=== PATIENT | female | born 1975 | race Caucasian/White ===

== ENCOUNTER 2019-01-04 21:48 | Inpatient (IN) | payer SELFPAY ==
[~2019-01-04] VITALS: Ht 167.6 cm; Wt 89.0 kg
[2019-01-04 23:56] LABS: BASO % 1 % (0-3); EOS # 0.1 x10^3/uL (0.0-0.7); EOS % 1 % (0-3); HEMOGLOBIN 13.7 g/dL (12.0-15.5); LYMPH # 1.9 x10^3/uL (1.0-4.8); LYMPH % 29 % (24-48); MEAN CORPUSCULAR HEMOGLOBIN 29 pg (25-35); MEAN CORPUSCULAR HGB CONC 34 g/dL (31-37); MEAN CORPUSCULAR VOLUME 86 fL (79-100); MONO # 0.5 x10^3/uL (0.0-1.1); MONO % 7 % (0-9); NEUT % 62 % (31-73); PLATELET COUNT 89 x10^3/uL (140-400); RED BLOOD COUNT 4.78 x10^6/uL (3.50-5.40); RED CELL DISTRIBUTION WIDTH 12.9 % (11.5-14.5); WHITE BLOOD COUNT 6.5 x10^3/uL (4.0-11.0)
[2019-01-04 23:57] LABS: BILIRUBIN,URINE SMALL (NEG); CLARITY,URINE CLOUDY; COLOR,URINE YELLOW; NITRITE,URINE POSITIVE (NEG); PROTEIN,URINE NEGATIVE (NEG-TRACE)
[2019-01-05 00:06] LABS: CALCIUM 9.2 mg/dL (8.5-10.1); CREATININE 0.8 mg/dL (0.6-1.0); GFR 78.3; POTASSIUM 3.2 mmol/L (3.5-5.1)
[2019-01-05 00:13] LABS: ALBUMIN 4.3 g/dL (3.4-5.0); ALBUMIN/GLOBULIN RATIO 1.1 (1.0-1.7); TOTAL BILIRUBIN 1.6 mg/dL (0.2-1.0); TOTAL PROTEIN 8.1 g/dL (6.4-8.2)
[2019-01-05 00:14] LABS: AMORPHOUS SEDIMENT,UR PRESENT /HPF; BACTERIA,URINE MANY /HPF (0-FEW); RBC,URINE RARE /HPF (0-2); SQUAMOUS EPITHELIAL CELL,UR MOD /LPF
[2019-01-05] MEDS ORDERED: ONDANSETRON PF 4 MG/2 ML VIAL. IV ONE (00:15)
[2019-01-05] MEDS ORDERED: IV NORMAL SALINE 1000ML BAG 1,000 ML IV ONE (00:15)
[2019-01-05] MEDS ORDERED: fentaNYL PF VIAL 100 MCG/2 ML VIAL IV ONE (00:15)
--- NOTE | 2019-01-05 02:23 | RAD ---
INDICATION: RUQ PAIN EPIGASTRIC PAIN, ELEVATED LFTS COMPARISON: None. TECHNIQUE: Grayscale and color ultrasound images obtained through the abdomen. FINDINGS: Aorta/IVC: Largely obscured by bowel gas Pancreas: Largely obscured by bowel gas Liver: Echogenic appearance Gallbladder: Distended up to 12 cm. There are some internal echoes. The patient does have some pain in the area. Wall measures up to about 4 mm. Common Bile Duct: Not dilated. Right Kidney: No hydronephrosis. IMPRESSION: 1. Liver is echogenic. Nonspecific but can be seen with fatty infiltration. 2. Dilated gallbladder with some internal echoes which could be from sludge within. There is also some pain to transducer pressure within the region and mild prominence the wall. Would correlate with symptoms to ensure there is not a pathologic cause such as hydrops. Electronically signed by: Johan Aguilar MD (01/05/2019 2:19 AM) [facility]
[2019-01-05] MEDS ORDERED: ONDANSETRON PF 4 MG/2 ML VIAL. IV PRN (03:15)
[2019-01-05] MEDS ORDERED: MORPHINE SULFATE 2 MG/ML VIAL. IV PRN (03:15)
[2019-01-05] MEDS ORDERED: PIP/TAZO PER PHARMACY MC PRN (03:15)
[2019-01-05] MEDS: PIPERACILLIN/TAZOBACTAM 3.375 GM in IV NORMAL SALINE 50ML 50 ML IV SCH ×4 (03:38→23:43)
--- NOTE | 2019-01-05 04:08 | PHYS DOC ---
Past Medical History Past Medical History: No Pertinent History Past Surgical History: No Surgical History Alcohol Use: None Drug Use: None Adult General Chief Complaint Chief Complaint: GI PROBLEM HPI HPI Patient is a 43 yo female who presents with complaint of abdominal pain and nausea that began Friday evening. Patient reports her symptoms have gradually worsened. She reports that although she has felt nauseous she has not vomited. She tried treating her pain with tylenol and last took a dose at 1900 without symptomatic relief. She reports her last bowel movement was Friday morning. She notes she has not passed gas since the bowel movement. She denies pain or burning w/ urination. Patient denies back pain, chest pain, shortness of breath. She reports her only past medical history is "something with her platelets" but is unable to be more specific. She denies drug use, etoh use, or tobacco use. She reports her primary care provider is at [facility]. Review of Systems Review of Systems Constitutional: Denies fever or chills [] Eyes: Denies change in visual acuity, redness, or eye pain [] HENT: Denies nasal congestion or sore throat [] Respiratory: Denies cough or shortness of breath [] Cardiovascular: Denies chest pain. Denies palpitation GI: Admits abdominal pain, Admits nausea. Denies diarrhea. Denies vomiting : Denies dysuria or hematuria [] Neurologic: Denies headache, focal weakness or sensory changes [] All other systems were reviewed and found to be within normal limits, except as documented in this note. Current Medications Current Medications Current Medications Medications (Trade) Dose Ordered Sig/Amaury Start Time Stop Time Status Last Admin Dose Admin Fentanyl Citrate (Fentanyl 2ml Vial) 50 mcg 1X ONCE 01/05/19 00:15 01/05/19 00:16 DC 01/05/19 01:20 50 MCG Morphine Sulfate (Morphine Sulfate) 2 mg PRN Q2HR PRN 01/05/19 03:15 01/06/19 03:14 Ondansetron HCl (Zofran) 4 mg PRN Q8HRS PRN 01/05/19 03:15 01/06/19 03:14 Piperacillin Sod/ Tazobactam Sod (Zosyn Per Pharmacy) 1 each PRN DAILY PRN 01/05/19 03:15 Sodium Chloride 1,000 ml @ 1,000 mls/hr 1X ONCE 01/05/19 00:15 01/05/19 01:14 DC 01/05/19 01:20 1,000 MLS/HR Allergies Allergies Allergies Coded Allergies Type Severity Reaction Last Updated Verified No Known Drug Allergies 01/04/19 No Physical Exam Physical Exam Constitutional: Well developed, well nourished, no acute distress, non-toxic appearance. [] HENT: Normocephalic, atraumatic Cardiovascular:Heart rate regular rhythm, no murmur [] Lungs & Thorax: Bilateral breath sounds clear to auscultation [] Abdomen: Bowel sounds normal, abdomen soft, no lesions, scars, or masses appreciated. Significant RUQ tenderness, noted Neurologic: Alert and oriented X 3, normal motor function, normal sensory function, no focal deficits noted. [] psych; alert and responsive, normal mood. ext: atraumatic no trauma seen no edema skin: no rash, no edema, no erythema. Current Patient Data Vital Signs Vital Signs Date Time Temp Pulse Resp B/P (MAP) Pulse Ox O2 Delivery O2 Flow Rate FiO2 01/05/19 01:20 16 98 Room Air 01/04/19 23:11 97.6 71 156/72 (100) 97.6 Lab Values Laboratory Tests Test 01/04/19 23:10 01/04/19 23:25 01/04/19 23:28 Urine Collection Type Unknown Urine Color Yellow Urine Clarity Cloudy Urine pH 7.0 Urine Specific [place] 1.015 Urine Protein Negative mg/dL (NEG-TRACE) Urine Glucose (UA) Negative mg/dL (NEG) Urine Ketones (Stick) 40 mg/dL (NEG) Urine Blood Negative (NEG) Urine Nitrite Positive (NEG) Urine Bilirubin Small (NEG) Urine Urobilinogen Dipstick 4.0 mg/dL (0.2 mg/dL) Urine Leukocyte Esterase Trace (NEG) Urine RBC Rare /HPF (0-2) Urine WBC 1-4 /HPF (0-4) Urine Squamous Epithelial Cells Mod /LPF Urine Amorphous Sediment Present /HPF Urine Bacteria Many /HPF (0-FEW) Urine Mucus Slight /LPF White Blood Count 6.5 x10^3/uL (4.0-11.0) Red Blood Count 4.78 x10^6/uL (3.50-5.40) Hemoglobin 13.7 g/dL (12.0-15.5) Hematocrit 41.0 % (36.0-47.0) Mean Corpuscular Volume 86 fL (79-100) Mean Corpuscular Hemoglobin 29 pg (25-35) Mean Corpuscular Hemoglobin Concent 34 g/dL (31-37) Red Cell Distribution Width 12.9 % (11.5-14.5) Platelet Count 89 x10^3/uL (140-400) L Neutrophils (%) (Auto) 62 % (31-73) Lymphocytes (%) (Auto) 29 % (24-48) Monocytes (%) (Auto) 7 % (0-9) Eosinophils (%) (Auto) 1 % (0-3) Basophils (%) (Auto) 1 % (0-3) Neutrophils # (Auto) 4.0 x10^3uL (1.8-7.7) Lymphocytes # (Auto) 1.9 x10^3/uL (1.0-4.8) Monocytes # (Auto) 0.5 x10^3/uL (0.0-1.1) Eosinophils # (Auto) 0.1 x10^3/uL (0.0-0.7) Basophils # (Auto) 0.0 x10^3/uL (0.0-0.2) Sodium Level 139 mmol/L (136-145) Potassium Level 3.2 mmol/L (3.5-5.1) L Chloride Level 100 mmol/L (98-107) Carbon Dioxide Level 29 mmol/L (21-32) Anion Gap 10 (6-14) Blood Urea Nitrogen 15 mg/dL (7-20) Creatinine 0.8 mg/dL (0.6-1.0) Estimated GFR (Cockcroft-Gault) 78.3 BUN/Creatinine Ratio 19 (6-20) Glucose Level 110 mg/dL (70-99) H Calcium Level 9.2 mg/dL (8.5-10.1) Total Bilirubin 1.6 mg/dL (0.2-1.0) H Aspartate Amino Transferase (AST) 633 U/L (15-37) H Alanine Aminotransferase (ALT) 589 U/L (14-59) H Alkaline Phosphatase 125 U/L (46-116) H Troponin I Quantitative < 0.017 ng/mL (0.000-0.055) Total Protein 8.1 g/dL (6.4-8.2) Albumin 4.3 g/dL (3.4-5.0) Albumin/Globulin Ratio 1.1 (1.0-1.7) Lipase 317 U/L (73-393) POC Urine HCG, Qualitative Hcg negative (Negative) Laboratory Tests 01/04/19 23:25 Laboratory Tests 01/04/19 23:25 EKG EKG [@0156; HR 60 BPM; Sinus rhythm. Nonspecific T wave flattening in III, V3, No ST elevation or ischemia appreciated. ] Radiology/Procedures Radiology/Procedures [PROCEDURE: ABDOMEN LTD INDICATION: RUQ PAIN EPIGASTRIC PAIN, ELEVATED LFTS COMPARISON: None. TECHNIQUE: Grayscale and color ultrasound images obtained through the abdomen. FINDINGS: Aorta/IVC: Largely obscured by bowel gas Pancreas: Largely obscured by bowel gas Liver: Echogenic appearance Gallbladder: Distended up to 12 cm. There are some internal echoes. The patient does have some pain in the area. Wall measures up to about 4 mm. Common Bile Duct: Not dilated. Right Kidney: No hydronephrosis. IMPRESSION: 1. Liver is echogenic. Nonspecific but can be seen with fatty infiltration. 2. Dilated gallbladder with some internal echoes which could be from sludge within. There is also some pain to transducer pressure within the region and mild prominence the wall. Would correlate with symptoms to ensure there is not a pathologic cause such as hydrops. Electronically signed by: Johan Aguilar MD (01/05/2019 2:19 AM) [facility] ] Course & Med Decision Making Course & Med Decision Making Patient is a 43 yo female who presents with complaint of one day of severe abdominal pain and nausea. Patient reports her last BM was Friday morning and she has not passed stool or gas since. Physical exam remarkable for significant abdominal tenderness and + hand's sign. Labs reveal moderately elevated AST, ALT, and alk phos. Troponin WNL. EKG sinus rhythm w/ HR 60. Abd US reveals echogenic liver w/ dilated gallbladder w/ possible biliary sludge and mild prominence of wall. As patient has pain, elevated LFTs, and dilated gallbladder , patient's symptoms could be d/t cholecystitis and that patient is appropriate for admission. Patient treated with fentanyl, morphine, zofran, fluids, and pip- tazo. Patient to be admitted to [facility] for further evaluation and treatment. Discussed plan with patient who voiced agreement and understanding. consult inpt placed for surgery and gi, unclear of exact etiology at this time as no stones seen per u/s report, likely will need further imaging in house. Dragon Disclaimer Dragon Disclaimer This electronic medical record was generated, in whole or in part, using a voice recognition dictation system. Departure Departure Impression: Primary Impression: Elevated LFTs Disposition: ADMITTED INPATIENT Admitting Physician: Other Condition: STABLE Referrals: NO PCP (PCP) GAURAV KING MD Jan 05, 2019 04:08
[2019-01-05 05:15] VITALS: BP 115/64
[2019-01-05] MEDS: IV NORMAL SALINE 1000ML BAG 1,000 ML IV SCH ×3 (05:37→21:25)
[2019-01-05 07:00] VITALS: BP 121/69
--- NOTE | 2019-01-05 07:34 | EKG ---
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
--- NOTE | 2019-01-05 08:07 | PDOC1 ---
History and Physical Date of Admission Date of Admission DATE: 01/05/19 TIME: 08:06 Identification/Chief Complaint Chief Complaint RUQ pain Source Source: Patient History of Present Illness History of Present Illness 43 yo female, mostly somali-speaking only, with PMHx thrombocytopenia who presents with complaint of abdominal pain and nausea that began 01/03/19 in the evening. Patient reports her symptoms have gradually worsened. She reports that although she has felt nauseous she has not vomited. She tried treating her pain with tylenol with no symptomatic relief. She reports her last bowel movement was yesterday morning. She notes she has not passed gas since the bowel movement. She denies pain or burning w/ urination. Patient denies back pain, chest pain, shortness of breath. Found with large transaminitis, admitted for further care. US RUQ shows GB wall thickening. Pain is located in RUQ, epigastrium and LUQ, worse in RUQ, worse with palpation and food. She notes 2/10 pain right now and is asking for food. She denies drug use, etoh use, or tobacco use Past Medical History Cardiovascular: No pertinent hx Pulmonary: No pertinent hx GI: No pertinent hx Heme/Onc: Other (Thrombocytopenia) Hepatobiliary: No pertinent hx Psych: No pertinent hx Rheumatologic: No pertinent hx Infectious disease: No pertinent hx ENT: No pertinent hx Renal/: No pertinent hx Endocrine: No pertinent hx Dermatology: No pertinent hx Current Medications Current Medications Current Medications Fentanyl Citrate (Fentanyl 2ml Vial) 50 mcg 1X ONCE IV Last administered on at 01:20; Start 01/05/19 at 00:15; Stop 01/05/19 at 00:16; Status DC Sodium Chloride 1,000 ml @ 1,000 mls/hr 1X ONCE IV Last administered on at :20; Start 01/05/19 at 00:15; Stop 01/05/19 at 01:14; Status DC Ondansetron HCl (Zofran) 4 mg 1X ONCE IV Last administered on 01/05/19at :20 ; Start 01/05/19 at 00:15; Stop 01/05/19 at 00:16; Status DC Piperacillin Sod/ Tazobactam Sod (Zosyn Per Pharmacy) 1 each PRN DAILY PRN [facility] SEE COMMENTS; Start 01/05/19 at 03:15 Ondansetron HCl (Zofran) 4 mg PRN Q8HRS PRN IV NAUSEA/VOMITING 1ST CHOICE; Start 01/05/19 at 03:15; Stop 01/06/19 at 03:14 Morphine Sulfate (Morphine Sulfate) 2 mg PRN Q2HR PRN IV SEVERE PAIN; Start at 03:15; Stop 01/06/19 at 03:14 Sodium Chloride 1,000 ml @ 125 mls/hr Q8H IV Last administered on 01/05/19at 05 :37; Start 01/05/19 at 03:30; Stop 01/06/19 at 03:29 Piperacillin Sod/ Tazobactam Sod 3.375 gm/Sodium Chloride 50 ml @ 100 mls/hr Q6HRS IV Last administered on 01/05/19at 03:38; Start 01/05/19 at 04:00 Allergies Allergies: Coded Allergies: No Known Drug Allergies (Unverified , 01/04/19) ROS General: YES: Fatigue, Malaise; No: Chills, Night Sweats, Appetite, Other PSYCHOLOGICAL ROS: No: Anxiety, Behavioral Disorder, Concentration difficultie , Decreased libido, Depression, Disorientation, Hallucinations, Hostility, Irritablity, Memory difficulties, Mood Swings, Obsessive thoughts, Physical abuse, Sexual abuse, Sleep disturbances, Suicidal ideation, Other Eyes: No Blurry vision, No Decreased vision, No Double vision, No Dry eyes, No Excessive tearing, No Eye Pain, No Itchy Eyes, No Loss of vision, No Photophobia , No Scotomata, No Uses contacts, No Uses glasses, No Other HEENT: No: Heacaches, Visual Changes, Hearing change, Nasal congestion, Nasal discharge, Oral lesions, Sinus pain, Sore Throat, Epistaxis, Sneezing, Snoring, Tinnitus, Vertigo, Vocal changes, Other ALLERGY AND IMMUNOLOGY: No: Hives, Insect Bite Sensitivity, Itchy/Watery Eyes, Nasal Congestion, Post Nasal Drip, Seasonal Allergies, Other Hematological and Lymphatic: No: Bleeding Problems, Blood Clots, Blood Transfusions, Brusing, Night Sweats, Pallor, Swollen Lymph Nodes, Other ENDOCRINE: No: Breast Changes, Galactorrhea, Hair Pattern Changes, Hot Flashes , Malaise/lethargy, Mood Swings, Palpitations, Polydipsia/polyuria, Skin Changes , Temperature Intolerance, Unexpected Weight Changes, Other Breast: No New/Changing Breast Lumps, No Nipple changes, No Nipple discharge, No Other Respiratory: No: Cough, Hemoptysis, Orthopnea, Pleuritic Pain, Shortness of breath, SOB with excertion, Sputum Changes, Stridor, Tachypnea, Wheezing, Other Cardiovascular: No Chest Pain, No Palpitations, No Orthopnea, No Paroxysmal Noc. Dyspnea, No Edema, No Lt Headedness, No Other Gastrointestinal: Yes Nausea, Yes Abdominal Pain; No Vomiting, No Diarrhea, No Constipation, No Melena, No Hematochezia, No Other Genitourinary: YES Dysuria; No Frequency, No Incontinence, No Hematuria, No Retention, No Discharge, No Urgency, No Pain, No Flank Pain, No Other, No , No , No , No , No , No , No Musculoskeletal: No Gait Disturbance, No Joint Pain, No Joint Stiffness, No Joint Swelling, No Muscle Pain, No Muscular Weakness, No Pain In:, No Swelling In:, No Other Neurological: No Behavorial Changes, No Bowel/Bladder ControlChng, No Confusion , No Dizziness, No Gait Disturbance, No Headaches, No Impaired Coord/balance, No Memory Loss, No Numbness/Tingling, No Seizures, No Speech Problems, No Tremors, No Visual Changes, No Weakness, No Other Skin: No Dry Skin, No Eczema, No Hair Changes, No Lumps, No Mole Changes, No Mottling, No Nail Changes, No Pruritus, No Rash, No Skin Lesion Changes, No Other, No Acne Physical Exam General: Alert, Oriented X3, Cooperative, No acute distress HEENT: Atraumatic, PERRLA, EOMI, Mucous membr. moist/pink Lungs: Clear to auscultation, Normal air movement Heart: S1S2, RRR, no gallops, no murmurs Abdomen: Normal bowel sounds, Soft, No hepatosplenomegaly, No masses, Other ( RUQ and epigastric tenderness) Extremities: No clubbing, No cyanosis, No edema, Normal pulses, No tenderness/ swelling Skin: No rashes, No breakdown, No significant lesion Neuro: Normal gait, Normal speech, Strength at 5/5 X4 ext, Normal tone, Sensation intact, Cranial nerves 3-12 NL, Reflexes 2+ Psych/Mental Status: Mental status NL, Mood NL Vitals Vitals Vital Signs Date Time Temp Pulse Resp B/P (MAP) Pulse Ox O2 Delivery O2 Flow Rate FiO2 01/05/19 07:00 97.8 68 16 121/69 (86) 98 Room Air 97.8 Labs Labs Laboratory Tests Test 01/04/19 23:10 01/04/19 23:25 01/04/19 23:28 Urine Collection Type Unknown Urine Color Yellow Urine Clarity Cloudy Urine pH 7.0 Urine Specific [place] 1.015 Urine Protein Negative mg/dL (NEG-TRACE) Urine Glucose (UA) Negative mg/dL (NEG) Urine Ketones (Stick) 40 mg/dL (NEG) Urine Blood Negative (NEG) Urine Nitrite Positive (NEG) Urine Bilirubin Small (NEG) Urine Urobilinogen Dipstick 4.0 mg/dL (0.2 mg/dL) Urine Leukocyte Esterase Trace (NEG) Urine RBC Rare /HPF (0-2) Urine WBC 1-4 /HPF (0-4) Urine Squamous Epithelial Cells Mod /LPF Urine Amorphous Sediment Present /HPF Urine Bacteria Many /HPF (0-FEW) Urine Mucus Slight /LPF White Blood Count 6.5 x10^3/uL (4.0-11.0) Red Blood Count 4.78 x10^6/uL (3.50-5.40) Hemoglobin 13.7 g/dL (12.0-15.5) Hematocrit 41.0 % (36.0-47.0) Mean Corpuscular Volume 86 fL (79-100) Mean Corpuscular Hemoglobin 29 pg (25-35) Mean Corpuscular Hemoglobin Concent 34 g/dL (31-37) Red Cell Distribution Width 12.9 % (11.5-14.5) Platelet Count 89 x10^3/uL (140-400) Neutrophils (%) (Auto) 62 % (31-73) Lymphocytes (%) (Auto) 29 % (24-48) Monocytes (%) (Auto) 7 % (0-9) Eosinophils (%) (Auto) 1 % (0-3) Basophils (%) (Auto) 1 % (0-3) Neutrophils # (Auto) 4.0 x10^3uL (1.8-7.7) Lymphocytes # (Auto) 1.9 x10^3/uL (1.0-4.8) Monocytes # (Auto) 0.5 x10^3/uL (0.0-1.1) Eosinophils # (Auto) 0.1 x10^3/uL (0.0-0.7) Basophils # (Auto) 0.0 x10^3/uL (0.0-0.2) Sodium Level 139 mmol/L (136-145) Potassium Level 3.2 mmol/L (3.5-5.1) Chloride Level 100 mmol/L (98-107) Carbon Dioxide Level 29 mmol/L (21-32) Anion Gap 10 (6-14) Blood Urea Nitrogen 15 mg/dL (7-20) Creatinine 0.8 mg/dL (0.6-1.0) Estimated GFR (Cockcroft-Gault) 78.3 BUN/Creatinine Ratio 19 (6-20) Glucose Level 110 mg/dL (70-99) Calcium Level 9.2 mg/dL (8.5-10.1) Total Bilirubin 1.6 mg/dL (0.2-1.0) Aspartate Amino Transf (AST/SGOT) 633 U/L (15-37) Alanine Aminotransferase (ALT/SGPT) 589 U/L (14-59) Alkaline Phosphatase 125 U/L (46-116) Troponin I Quantitative < 0.017 ng/mL (0.000-0.055) Total Protein 8.1 g/dL (6.4-8.2) Albumin 4.3 g/dL (3.4-5.0) Albumin/Globulin Ratio 1.1 (1.0-1.7) Lipase 317 U/L (73-393) Bedside Urine HCG, Qualitative Hcg negative (Negative) Laboratory Tests Test 01/04/19 23:10 01/04/19 23:25 01/04/19 23:28 Urine Collection Type Unknown Urine Color Yellow Urine Clarity Cloudy Urine pH 7.0 Urine Specific [place] 1.015 Urine Protein Negative mg/dL (NEG-TRACE) Urine Glucose (UA) Negative mg/dL (NEG) Urine Ketones (Stick) 40 mg/dL (NEG) Urine Blood Negative (NEG) Urine Nitrite Positive (NEG) Urine Bilirubin Small (NEG) Urine Urobilinogen Dipstick 4.0 mg/dL (0.2 mg/dL) Urine Leukocyte Esterase Trace (NEG) Urine RBC Rare /HPF (0-2) Urine WBC 1-4 /HPF (0-4) Urine Squamous Epithelial Cells Mod /LPF Urine Amorphous Sediment Present /HPF Urine Bacteria Many /HPF (0-FEW) Urine Mucus Slight /LPF White Blood Count 6.5 x10^3/uL (4.0-11.0) Red Blood Count 4.78 x10^6/uL (3.50-5.40) Hemoglobin 13.7 g/dL (12.0-15.5) Hematocrit 41.0 % (36.0-47.0) Mean Corpuscular Volume 86 fL (79-100) Mean Corpuscular Hemoglobin 29 pg (25-35) Mean Corpuscular Hemoglobin Concent 34 g/dL (31-37) Red Cell Distribution Width 12.9 % (11.5-14.5) Platelet Count 89 x10^3/uL (140-400) Neutrophils (%) (Auto) 62 % (31-73) Lymphocytes (%) (Auto) 29 % (24-48) Monocytes (%) (Auto) 7 % (0-9) Eosinophils (%) (Auto) 1 % (0-3) Basophils (%) (Auto) 1 % (0-3) Neutrophils # (Auto) 4.0 x10^3uL (1.8-7.7) Lymphocytes # (Auto) 1.9 x10^3/uL (1.0-4.8) Monocytes # (Auto) 0.5 x10^3/uL (0.0-1.1) Eosinophils # (Auto) 0.1 x10^3/uL (0.0-0.7) Basophils # (Auto) 0.0 x10^3/uL (0.0-0.2) Sodium Level 139 mmol/L (136-145) Potassium Level 3.2 mmol/L (3.5-5.1) Chloride Level 100 mmol/L (98-107) Carbon Dioxide Level 29 mmol/L (21-32) Anion Gap 10 (6-14) Blood Urea Nitrogen 15 mg/dL (7-20) Creatinine 0.8 mg/dL (0.6-1.0) Estimated GFR (Cockcroft-Gault) 78.3 BUN/Creatinine Ratio 19 (6-20) Glucose Level 110 mg/dL (70-99) Calcium Level 9.2 mg/dL (8.5-10.1) Total Bilirubin 1.6 mg/dL (0.2-1.0) Aspartate Amino Transf (AST/SGOT) 633 U/L (15-37) Alanine Aminotransferase (ALT/SGPT) 589 U/L (14-59) Alkaline Phosphatase 125 U/L (46-116) Troponin I Quantitative < 0.017 ng/mL (0.000-0.055) Total Protein 8.1 g/dL (6.4-8.2) Albumin 4.3 g/dL (3.4-5.0) Albumin/Globulin Ratio 1.1 (1.0-1.7) Lipase 317 U/L (73-393) Bedside Urine HCG, Qualitative Hcg negative (Negative) Images Images RUQ US - 1. Liver is echogenic. Nonspecific but can be seen with fatty infiltration. 2. Dilated gallbladder with some internal echoes which could be from sludge within. There is also some pain to transducer pressure within the region and mild prominence the wall. Would correlate with symptoms to ensure there is not a pathologic cause such as hydrops. VTE Prophylaxis Ordered VTE Prophylaxis Devices: Yes VTE Pharmacological Prophylaxi: No Assessment/Plan Assessment/Plan A/P: Abdominal pain - this seems likely cholecystitis, could be an acute hepatitis, however. Consult general surgery and GI Transaminitis - will get Hepatitis viral series and check HIV. Check thyroid, ferritin. Likely this is secondary to cholecystitis Thrombocytopenia - noted historically, will screen for HIV, Hepatitis. Cont to monitor. Transfuse platelets if she is less than 20 and hold off on thromboprophylaxis if < 50 Obesity - counseled on weight loss FEN - NPO, LR 125cc/hr PPX - SCDs FULL CODE Inpatient for acute abdominal pain, likely acute leonel, will need a few night inpatient NIRAJ BISHOP MD Jan 05, 2019 08:07
[2019-01-05 10:41] VITALS: BP 125/70
--- NOTE | 2019-01-05 12:12 | PDOC2 ---
GI CONSULT Reason For Consult: Abnormal LFTs HPI: HPI: Used anthropology faculty member phone #[phone]. 43 y/o female w/ epigastric and RUQ discomfort since Friday afternoon. Associated w/ nausea. No precipitating events. [place] intermittently, worse w/ movement. Decreased appetite. H/o occasional heartburn, uses Zantac PRN. Currently denies heartburn/reflux. No dysphagia. No vomiting or hematemesis. No diarrhea, constipation, hematochezia, or melena. No weight loss. No previous EGD or colonoscopy. Denies liver, GB, pancreas, and PUD history. No NSAIDs. PMH: PMH: thrombocytopenia, IUD FH: Family History: Other (mother - GB disease) Social History: Smoke: No ALCOHOL: none Drugs: None ROS: GEN: Denies fevers, chills, sweats HEENT: Denies blurred vision, sore throat CV: Denies chest pain RESP: Denies shortness of air, cough GI: Per HPI : Denies hematuria, dysuria ENDO: Denies weight changes NEURO: Denies confusion, dizziness MSK: Denies weakness, joint pain/swelling SKIN: Denies jaundice, pruritus Vitals: Vitals: Vital Signs Date Time Temp Pulse Resp B/P (MAP) Pulse Ox O2 Delivery O2 Flow Rate FiO2 01/05/19 10:41 98.0 59 16 125/70 (88) 96 Room Air 98.0 Labs: Labs: Laboratory Tests Test 01/04/19 23:10 01/04/19 23:25 01/04/19 23:28 Urine Collection Type Unknown Urine Color Yellow Urine Clarity Cloudy Urine pH 7.0 Urine Specific [place] 1.015 Urine Protein Negative mg/dL (NEG-TRACE) Urine Glucose (UA) Negative mg/dL (NEG) Urine Ketones (Stick) 40 mg/dL (NEG) Urine Blood Negative (NEG) Urine Nitrite Positive (NEG) Urine Bilirubin Small (NEG) Urine Urobilinogen Dipstick 4.0 mg/dL (0.2 mg/dL) Urine Leukocyte Esterase Trace (NEG) Urine RBC Rare /HPF (0-2) Urine WBC 1-4 /HPF (0-4) Urine Squamous Epithelial Cells Mod /LPF Urine Amorphous Sediment Present /HPF Urine Bacteria Many /HPF (0-FEW) Urine Mucus Slight /LPF White Blood Count 6.5 x10^3/uL (4.0-11.0) Red Blood Count 4.78 x10^6/uL (3.50-5.40) Hemoglobin 13.7 g/dL (12.0-15.5) Hematocrit 41.0 % (36.0-47.0) Mean Corpuscular Volume 86 fL (79-100) Mean Corpuscular Hemoglobin 29 pg (25-35) Mean Corpuscular Hemoglobin Concent 34 g/dL (31-37) Red Cell Distribution Width 12.9 % (11.5-14.5) Platelet Count 89 x10^3/uL (140-400) Neutrophils (%) (Auto) 62 % (31-73) Lymphocytes (%) (Auto) 29 % (24-48) Monocytes (%) (Auto) 7 % (0-9) Eosinophils (%) (Auto) 1 % (0-3) Basophils (%) (Auto) 1 % (0-3) Neutrophils # (Auto) 4.0 x10^3uL (1.8-7.7) Lymphocytes # (Auto) 1.9 x10^3/uL (1.0-4.8) Monocytes # (Auto) 0.5 x10^3/uL (0.0-1.1) Eosinophils # (Auto) 0.1 x10^3/uL (0.0-0.7) Basophils # (Auto) 0.0 x10^3/uL (0.0-0.2) Sodium Level 139 mmol/L (136-145) Potassium Level 3.2 mmol/L (3.5-5.1) Chloride Level 100 mmol/L (98-107) Carbon Dioxide Level 29 mmol/L (21-32) Anion Gap 10 (6-14) Blood Urea Nitrogen 15 mg/dL (7-20) Creatinine 0.8 mg/dL (0.6-1.0) Estimated GFR (Cockcroft-Gault) 78.3 BUN/Creatinine Ratio 19 (6-20) Glucose Level 110 mg/dL (70-99) Calcium Level 9.2 mg/dL (8.5-10.1) Total Bilirubin 1.6 mg/dL (0.2-1.0) Aspartate Amino Transf (AST/SGOT) 633 U/L (15-37) Alanine Aminotransferase (ALT/SGPT) 589 U/L (14-59) Alkaline Phosphatase 125 U/L (46-116) Troponin I Quantitative < 0.017 ng/mL (0.000-0.055) Total Protein 8.1 g/dL (6.4-8.2) Albumin 4.3 g/dL (3.4-5.0) Albumin/Globulin Ratio 1.1 (1.0-1.7) Lipase 317 U/L (73-393) Bedside Urine HCG, Qualitative Hcg negative (Negative) Allergies: Coded Allergies: No Known Drug Allergies (Unverified , 01/04/19) Medications: Current Medications Medications (Trade) Dose Ordered Sig/Amaury Route PRN Reason Start Time Stop Time Status Last Admin Dose Admin Fentanyl Citrate (Fentanyl 2ml Vial) 50 mcg 1X ONCE IV 01/05/19 00:15 01/05/19 00:16 DC 01/05/19 01:20 Sodium Chloride 1,000 ml @ 1,000 mls/hr 1X ONCE IV 01/05/19 00:15 01/05/19 01:14 DC 01/05/19 01:20 Ondansetron HCl (Zofran) 4 mg 1X ONCE IV 01/05/19 00:15 01/05/19 00:16 DC 01/05/19 01:20 Sodium Chloride 1,000 ml @ 125 mls/hr Q8H IV 01/05/19 03:30 01/06/19 03:29 01/05/19 11:45 Piperacillin Sod/ Tazobactam Sod 3.375 gm/Sodium Chloride 50 ml @ 100 mls/hr Q6HRS IV 01/05/19 04:00 01/05/19 11:45 Imaging: Imaging: Abd US IMPRESSION: 1. Liver is echogenic. Nonspecific but can be seen with fatty infiltration. 2. Dilated gallbladder with some internal echoes which could be from sludge within. There is also some pain to transducer pressure within the region and mild prominence the wall. Would correlate with symptoms to ensure there is not a pathologic cause such as hydrops. PE: GEN: NAD HEENT: Atraumatic, PERRL LUNGS: CTAB HEART: RRR ABD: NABS, S/ND, epigastric to RUQ discomfort EXTREMITY: No edema SKIN: No rashes, no jaundice NEURO/PSYCH: A & O 3 A/P: A/P: Upper abd pain, nausea Occasional heartburn Abnormal LFTs Thrombocytopenia - chronic Dilated GB, ?sludge, suspected hepatic steatosis CRC screen - average risk -- Empiric acid-warper fixer. Await Hepatitis serologies and surgical thoughts. SOWMYA TURNER Jan 05, 2019 12:12
--- NOTE | 2019-01-05 13:01 | PDOC2 ---
CONSULT Date of Consult Date of Consult DATE: 01/05/19 TIME: 12:57 History of Present Illness Reason for Visit: The patient is a 43 year old female who reported to the hospital with abdominal pain. The pain began 2-3 days ago and was described as severe, sharp , and located in the upper mid abdomen with radiation to the back. She denies associated nausea or vomiting. The pain remained persistent but has improved while in the hospital. She denies experiencing this before, and reports normal bowel and bladder function. Past Medical History Cardiovascular: No pertinent hx Pulmonary: No pertinent hx GI: No pertinent hx Heme/Onc: Other (Thrombocytopenia) Hepatobiliary: No pertinent hx Psych: No pertinent hx Rheumatologic: No pertinent hx Infectious disease: No pertinent hx ENT: No pertinent hx Renal/: No pertinent hx Endocrine: No pertinent hx Dermatology: No pertinent hx Past Surgical History Past Surgical History denies Social History No ALCOHOL: none Drugs: None Current Medications Current Medications Current Medications Fentanyl Citrate (Fentanyl 2ml Vial) 50 mcg 1X ONCE IV Last administered on at 01:20; Start 01/05/19 at 00:15; Stop 01/05/19 at 00:16; Status DC Sodium Chloride 1,000 ml @ 1,000 mls/hr 1X ONCE IV Last administered on at 01:20; Start 01/05/19 at 00:15; Stop 01/05/19 at 01:14; Status DC Ondansetron HCl (Zofran) 4 mg 1X ONCE IV Last administered on 01/05/19at 01:20 ; Start 01/05/19 at 00:15; Stop 01/05/19 at 00:16; Status DC Piperacillin Sod/ Tazobactam Sod (Zosyn Per Pharmacy) 1 each PRN DAILY PRN MC SEE COMMENTS; Start 01/05/19 at 03:15 Ondansetron HCl (Zofran) 4 mg PRN Q8HRS PRN IV NAUSEA/VOMITING 1ST CHOICE; Start 01/05/19 at 03:15; Stop 01/06/19 at 03:14 Morphine Sulfate (Morphine Sulfate) 2 mg PRN Q2HR PRN IV SEVERE PAIN; Start at 03:15; Stop 01/06/19 at 03:14 Sodium Chloride 1,000 ml @ 125 mls/hr Q8H IV Last administered on 01/05/19at 11 :45; Start 01/05/19 at 03:30; Stop 01/06/19 at 03:29 Piperacillin Sod/ Tazobactam Sod 3.375 gm/Sodium Chloride 50 ml @ 100 mls/hr Q6HRS IV Last administered on 01/05/19at 11:45; Start 01/05/19 at 04:00 Pantoprazole Sodium (PROTONIX VIAL for IV PUSH) 40 mg BIDAC IVP ; Start at 16:30 Allergies Allergies: Coded Allergies: No Known Drug Allergies (Unverified , 01/04/19) ROS General: No: Chills, Night Sweats, Fatigue, Malaise, Appetite, Other PSYCHOLOGICAL ROS: No: Anxiety, Behavioral Disorder, Concentration difficultie , Decreased libido, Depression, Disorientation, Hallucinations, Hostility, Irritablity, Memory difficulties, Mood Swings, Obsessive thoughts, Physical abuse, Sexual abuse, Sleep disturbances, Suicidal ideation, Other Eyes: No Blurry vision, No Decreased vision, No Double vision, No Dry eyes, No Excessive tearing, No Eye Pain, No Itchy Eyes, No Loss of vision, No Photophobia , No Scotomata, No Uses contacts, No Uses glasses, No Other ALLERGY AND IMMUNOLOGY: No: Hives, Insect Bite Sensitivity, Itchy/Watery Eyes, Nasal Congestion, Post Nasal Drip, Seasonal Allergies, Other Hematological and Lymphatic: No: Bleeding Problems, Blood Clots, Blood Transfusions, Brusing, Night Sweats, Pallor, Swollen Lymph Nodes, Other ENDOCRINE: No: Breast Changes, Galactorrhea, Hair Pattern Changes, Hot Flashes , Malaise/lethargy, Mood Swings, Palpitations, Polydipsia/polyuria, Skin Changes , Temperature Intolerance, Unexpected Weight Changes, Other Respiratory: No: Cough, Hemoptysis, Orthopnea, Pleuritic Pain, Shortness of breath, SOB with excertion, Sputum Changes, Stridor, Tachypnea, Wheezing, Other Cardiovascular: No Chest Pain, No Palpitations, No Orthopnea, No Paroxysmal Noc. Dyspnea, No Edema, No Lt Headedness, No Other Gastrointestinal: Yes Abdominal Pain Genitourinary: No Dysuria, No Frequency, No Incontinence, No Hematuria, No Retention, No Discharge, No Urgency, No Pain, No Flank Pain, No Other, No , No , No , No , No , No , No Musculoskeletal: No Gait Disturbance, No Joint Pain, No Joint Stiffness, No Joint Swelling, No Muscle Pain, No Muscular Weakness, No Pain In:, No Swelling In:, No Other Neurological: No Behavorial Changes, No Bowel/Bladder ControlChng, No Confusion , No Dizziness, No Gait Disturbance, No Headaches, No Impaired Coord/balance, No Memory Loss, No Numbness/Tingling, No Seizures, No Speech Problems, No Tremors, No Visual Changes, No Weakness, No Other Skin: No Dry Skin, No Eczema, No Hair Changes, No Lumps, No Mole Changes, No Mottling, No Nail Changes, No Pruritus, No Rash, No Skin Lesion Changes, No Other, No Acne Physical Exam General: Alert, Oriented X3 HEENT: Atraumatic Lungs: Clear to auscultation Heart: Regular rate Abdomen: Soft (tender with palpation in upper abdomen and RUQ) Extremities: No clubbing, No cyanosis Skin: No rashes Neuro: Normal speech MUSCULOSKELETAL: No joint tenderness, No deformity Vitals VITALS Vital Signs Date Time Temp Pulse Resp B/P (MAP) Pulse Ox O2 Delivery O2 Flow Rate FiO2 01/05/19 10:41 98.0 59 16 125/70 (88) 96 Room Air 98.0 Labs Labs Laboratory Tests Test 01/04/19 23:10 01/04/19 23:25 01/04/19 23:28 Urine Collection Type Unknown Urine Color Yellow Urine Clarity Cloudy Urine pH 7.0 Urine Specific [place] 1.015 Urine Protein Negative mg/dL (NEG-TRACE) Urine Glucose (UA) Negative mg/dL (NEG) Urine Ketones (Stick) 40 mg/dL (NEG) Urine Blood Negative (NEG) Urine Nitrite Positive (NEG) Urine Bilirubin Small (NEG) Urine Urobilinogen Dipstick 4.0 mg/dL (0.2 mg/dL) Urine Leukocyte Esterase Trace (NEG) Urine RBC Rare /HPF (0-2) Urine WBC 1-4 /HPF (0-4) Urine Squamous Epithelial Cells Mod /LPF Urine Amorphous Sediment Present /HPF Urine Bacteria Many /HPF (0-FEW) Urine Mucus Slight /LPF White Blood Count 6.5 x10^3/uL (4.0-11.0) Red Blood Count 4.78 x10^6/uL (3.50-5.40) Hemoglobin 13.7 g/dL (12.0-15.5) Hematocrit 41.0 % (36.0-47.0) Mean Corpuscular Volume 86 fL (79-100) Mean Corpuscular Hemoglobin 29 pg (25-35) Mean Corpuscular Hemoglobin Concent 34 g/dL (31-37) Red Cell Distribution Width 12.9 % (11.5-14.5) Platelet Count 89 x10^3/uL (140-400) Neutrophils (%) (Auto) 62 % (31-73) Lymphocytes (%) (Auto) 29 % (24-48) Monocytes (%) (Auto) 7 % (0-9) Eosinophils (%) (Auto) 1 % (0-3) Basophils (%) (Auto) 1 % (0-3) Neutrophils # (Auto) 4.0 x10^3uL (1.8-7.7) Lymphocytes # (Auto) 1.9 x10^3/uL (1.0-4.8) Monocytes # (Auto) 0.5 x10^3/uL (0.0-1.1) Eosinophils # (Auto) 0.1 x10^3/uL (0.0-0.7) Basophils # (Auto) 0.0 x10^3/uL (0.0-0.2) Sodium Level 139 mmol/L (136-145) Potassium Level 3.2 mmol/L (3.5-5.1) Chloride Level 100 mmol/L (98-107) Carbon Dioxide Level 29 mmol/L (21-32) Anion Gap 10 (6-14) Blood Urea Nitrogen 15 mg/dL (7-20) Creatinine 0.8 mg/dL (0.6-1.0) Estimated GFR (Cockcroft-Gault) 78.3 BUN/Creatinine Ratio 19 (6-20) Glucose Level 110 mg/dL (70-99) Calcium Level 9.2 mg/dL (8.5-10.1) Total Bilirubin 1.6 mg/dL (0.2-1.0) Aspartate Amino Transf (AST/SGOT) 633 U/L (15-37) Alanine Aminotransferase (ALT/SGPT) 589 U/L (14-59) Alkaline Phosphatase 125 U/L (46-116) Troponin I Quantitative < 0.017 ng/mL (0.000-0.055) Total Protein 8.1 g/dL (6.4-8.2) Albumin 4.3 g/dL (3.4-5.0) Albumin/Globulin Ratio 1.1 (1.0-1.7) Lipase 317 U/L (73-393) Bedside Urine HCG, Qualitative Hcg negative (Negative) Laboratory Tests Test 01/04/19 23:10 01/04/19 23:25 01/04/19 23:28 Urine Collection Type Unknown Urine Color Yellow Urine Clarity Cloudy Urine pH 7.0 Urine Specific [place] 1.015 Urine Protein Negative mg/dL (NEG-TRACE) Urine Glucose (UA) Negative mg/dL (NEG) Urine Ketones (Stick) 40 mg/dL (NEG) Urine Blood Negative (NEG) Urine Nitrite Positive (NEG) Urine Bilirubin Small (NEG) Urine Urobilinogen Dipstick 4.0 mg/dL (0.2 mg/dL) Urine Leukocyte Esterase Trace (NEG) Urine RBC Rare /HPF (0-2) Urine WBC 1-4 /HPF (0-4) Urine Squamous Epithelial Cells Mod /LPF Urine Amorphous Sediment Present /HPF Urine Bacteria Many /HPF (0-FEW) Urine Mucus Slight /LPF White Blood Count 6.5 x10^3/uL (4.0-11.0) Red Blood Count 4.78 x10^6/uL (3.50-5.40) Hemoglobin 13.7 g/dL (12.0-15.5) Hematocrit 41.0 % (36.0-47.0) Mean Corpuscular Volume 86 fL (79-100) Mean Corpuscular Hemoglobin 29 pg (25-35) Mean Corpuscular Hemoglobin Concent 34 g/dL (31-37) Red Cell Distribution Width 12.9 % (11.5-14.5) Platelet Count 89 x10^3/uL (140-400) Neutrophils (%) (Auto) 62 % (31-73) Lymphocytes (%) (Auto) 29 % (24-48) Monocytes (%) (Auto) 7 % (0-9) Eosinophils (%) (Auto) 1 % (0-3) Basophils (%) (Auto) 1 % (0-3) Neutrophils # (Auto) 4.0 x10^3uL (1.8-7.7) Lymphocytes # (Auto) 1.9 x10^3/uL (1.0-4.8) Monocytes # (Auto) 0.5 x10^3/uL (0.0-1.1) Eosinophils # (Auto) 0.1 x10^3/uL (0.0-0.7) Basophils # (Auto) 0.0 x10^3/uL (0.0-0.2) Sodium Level 139 mmol/L (136-145) Potassium Level 3.2 mmol/L (3.5-5.1) Chloride Level 100 mmol/L (98-107) Carbon Dioxide Level 29 mmol/L (21-32) Anion Gap 10 (6-14) Blood Urea Nitrogen 15 mg/dL (7-20) Creatinine 0.8 mg/dL (0.6-1.0) Estimated GFR (Cockcroft-Gault) 78.3 BUN/Creatinine Ratio 19 (6-20) Glucose Level 110 mg/dL (70-99) Calcium Level 9.2 mg/dL (8.5-10.1) Total Bilirubin 1.6 mg/dL (0.2-1.0) Aspartate Amino Transf (AST/SGOT) 633 U/L (15-37) Alanine Aminotransferase (ALT/SGPT) 589 U/L (14-59) Alkaline Phosphatase 125 U/L (46-116) Troponin I Quantitative < 0.017 ng/mL (0.000-0.055) Total Protein 8.1 g/dL (6.4-8.2) Albumin 4.3 g/dL (3.4-5.0) Albumin/Globulin Ratio 1.1 (1.0-1.7) Lipase 317 U/L (73-393) Bedside Urine HCG, Qualitative Hcg negative (Negative) Assessment/Plan Assessment/Plan 43 year old female, RUQ and upper abdominal pain, elevated LFTs, sono results noted, poss sludge, dilated gallbladder, tender with probe examination. Given her clinical findings would recommend lap leonel with grams. I reviewed the details of the procedure with the patient including the risks. She understands and would like to proceed. YANCY MCKEON MD Jan 05, 2019 13:01
--- NOTE | 2019-01-05 14:41 | NUR ---
SW following for discharge planning. Discussed with RN, pt is Wallisian speaking. Possible procedure. Pt is self pay, SW to give self pay resources. SW will continue to follow.
[2019-01-05 15:00] VITALS: BP 123/64
[2019-01-05] MEDS: PANTOPRAZOLE IV PUSH 40 MG VIAL. IVP SCH (16:02)
[2019-01-05 19:00] VITALS: BP 128/68
[2019-01-05] MEDS: LACTOBACILLUS RHAMNOSUS GG 1 CAPSULE. PO SCH (21:21)
[2019-01-05 22:59] VITALS: BP 131/75
[2019-01-06] VITALS (14 sets, daily range): BP systolic 110–153; BP diastolic 60–81
[2019-01-06 04:59] LABS: ALBUMIN 3.5 g/dL (3.4-5.0); CALCIUM 8.4 mg/dL (8.5-10.1); CREATININE 0.7 mg/dL (0.6-1.0); GFR 91.3; POTASSIUM 3.3 mmol/L (3.5-5.1); TOTAL BILIRUBIN 0.7 mg/dL (0.2-1.0); TOTAL PROTEIN 6.9 g/dL (6.4-8.2)
[2019-01-06] MEDS: PIPERACILLIN/TAZOBACTAM 3.375 GM in IV NORMAL SALINE 50ML 50 ML IV SCH ×3 (05:59→17:28)
[2019-01-06] MEDS: LACTOBACILLUS RHAMNOSUS GG 1 CAPSULE. PO SCH ×2 (08:09→20:38)
[2019-01-06] MEDS: PANTOPRAZOLE IV PUSH 40 MG VIAL. IVP SCH ×2 (08:11→15:35)
--- NOTE | 2019-01-06 08:12 | PDOC ---
PROGRESS NOTES Chief Complaint Chief Complaint A/P: Abdominal pain - this seems likely cholecystitis, could be an acute hepatitis, however. Consult general surgery and GI Transaminitis - will get Hepatitis viral series and check HIV. Check thyroid, ferritin. Likely this is secondary to cholecystitis Thrombocytopenia - noted historically, will screen for HIV, Hepatitis. Cont to monitor. Transfuse platelets if she is less than 20 and hold off on thromboprophylaxis if < 50 Obesity - counseled on weight loss FEN - NPO, LR 125cc/hr PPX - SCDs FULL CODE Inpatient for acute abdominal pain, likely acute leonel, will need a few night inpatient History of Present Illness History of Present Illness 43 yo female, mostly luxembourgish-speaking only, with PMHx thrombocytopenia who presents with complaint of abdominal pain and nausea that began 01/03/19 in the evening. Patient reports her symptoms have gradually worsened. She reports that although she has felt nauseous she has not vomited. She tried treating her pain with tylenol with no symptomatic relief. She reports her last bowel movement was yesterday morning. She notes she has not passed gas since the bowel movement. She denies pain or burning w/ urination. Patient denies back pain, chest pain, shortness of breath. Found with large transaminitis, admitted for further care. US RUQ shows GB wall thickening. Pain improved after morphine dosing. LFTs better today, plan for lap leonel. She still has some bilateral upper quadrant pain. No SOB or chest pain Vitals Vitals Vital Signs Date Time Temp Pulse Resp B/P (MAP) Pulse Ox O2 Delivery O2 Flow Rate FiO2 01/06/19 03:00 98.1 55 18 147/81 (103) 95 Room Air 98.1 Physical Exam General: Alert, Oriented X3, Cooperative, No acute distress Heart: Regular rate Abdomen: Normal bowel sounds, Soft, No hepatosplenomegaly, No masses, Other ( RUQ and epigastric tenderness) Extremities: No clubbing, No cyanosis, No edema, Normal pulses, No tenderness/ swelling Skin: No rashes, No breakdown, No significant lesion Labs LABS Laboratory Tests Test 01/05/19 11:30 01/06/19 03:10 Hepatitis A IgM Antibody Nonreactive (Nonreactive) Hepatitis B Surface Antigen Nonreactive (Nonreactive) Hepatitis B Core IgM Antibody Nonreactive (Nonreactive) Hepatitis C IgG Antibody Nonreactive (Nonreactive) HIV (1&2) Antibody Screen Nonreactive (Nonreactive) Sodium Level 144 mmol/L (136-145) Potassium Level 3.3 mmol/L (3.5-5.1) Chloride Level 104 mmol/L (98-107) Carbon Dioxide Level 29 mmol/L (21-32) Anion Gap 11 (6-14) Blood Urea Nitrogen 3 mg/dL (7-20) Creatinine 0.7 mg/dL (0.6-1.0) Estimated GFR (Cockcroft-Gault) 91.3 BUN/Creatinine Ratio 4 (6-20) Glucose Level 105 mg/dL (70-99) Calcium Level 8.4 mg/dL (8.5-10.1) Total Bilirubin 0.7 mg/dL (0.2-1.0) Aspartate Amino Transf (AST/SGOT) 169 U/L (15-37) Alanine Aminotransferase (ALT/SGPT) 401 U/L (14-59) Alkaline Phosphatase 109 U/L (46-116) Total Protein 6.9 g/dL (6.4-8.2) Albumin 3.5 g/dL (3.4-5.0) Albumin/Globulin Ratio 1.0 (1.0-1.7) Comment Review of Relevant I have reviewed the following items janeth (where applicable) has been applied. Labs Laboratory Tests Test 01/04/19 23:10 01/04/19 23:25 01/04/19 23:28 01/05/19 11:30 Urine Collection Type Unknown Urine Color Yellow Urine Clarity Cloudy Urine pH 7.0 Urine Specific [facility] 1.015 Urine Protein Negative mg/dL (NEG-TRACE) Urine Glucose (UA) Negative mg/dL (NEG) Urine Ketones (Stick) 40 mg/dL (NEG) Urine Blood Negative (NEG) Urine Nitrite Positive (NEG) Urine Bilirubin Small (NEG) Urine Urobilinogen Dipstick 4.0 mg/dL (0.2 mg/dL) Urine Leukocyte Esterase Trace (NEG) Urine RBC Rare /HPF (0-2) Urine WBC 1-4 /HPF (0-4) Urine Squamous Epithelial Cells Mod /LPF Urine Amorphous Sediment Present /HPF Urine Bacteria Many /HPF (0-FEW) Urine Mucus Slight /LPF White Blood Count 6.5 x10^3/uL (4.0-11.0) Red Blood Count 4.78 x10^6/uL (3.50-5.40) Hemoglobin 13.7 g/dL (12.0-15.5) Hematocrit 41.0 % (36.0-47.0) Mean Corpuscular Volume 86 fL (79-100) Mean Corpuscular Hemoglobin 29 pg (25-35) Mean Corpuscular Hemoglobin Concent 34 g/dL (31-37) Red Cell Distribution Width 12.9 % (11.5-14.5) Platelet Count 89 x10^3/uL (140-400) Neutrophils (%) (Auto) 62 % (31-73) Lymphocytes (%) (Auto) 29 % (24-48) Monocytes (%) (Auto) 7 % (0-9) Eosinophils (%) (Auto) 1 % (0-3) Basophils (%) (Auto) 1 % (0-3) Neutrophils # (Auto) 4.0 x10^3uL (1.8-7.7) Lymphocytes # (Auto) 1.9 x10^3/uL (1.0-4.8) Monocytes # (Auto) 0.5 x10^3/uL (0.0-1.1) Eosinophils # (Auto) 0.1 x10^3/uL (0.0-0.7) Basophils # (Auto) 0.0 x10^3/uL (0.0-0.2) Sodium Level 139 mmol/L (136-145) Potassium Level 3.2 mmol/L (3.5-5.1) Chloride Level 100 mmol/L (98-107) Carbon Dioxide Level 29 mmol/L (21-32) Anion Gap 10 (6-14) Blood Urea Nitrogen 15 mg/dL (7-20) Creatinine 0.8 mg/dL (0.6-1.0) Estimated GFR (Cockcroft-Gault) 78.3 BUN/Creatinine Ratio 19 (6-20) Glucose Level 110 mg/dL (70-99) Calcium Level 9.2 mg/dL (8.5-10.1) Total Bilirubin 1.6 mg/dL (0.2-1.0) Aspartate Amino Transf (AST/SGOT) 633 U/L (15-37) Alanine Aminotransferase (ALT/SGPT) 589 U/L (14-59) Alkaline Phosphatase 125 U/L (46-116) Troponin I Quantitative < 0.017 ng/mL (0.000-0.055) Total Protein 8.1 g/dL (6.4-8.2) Albumin 4.3 g/dL (3.4-5.0) Albumin/Globulin Ratio 1.1 (1.0-1.7) Lipase 317 U/L (73-393) Bedside Urine HCG, Qualitative Hcg negative (Negative) Hepatitis A IgM Antibody Nonreactive (Nonreactive) Hepatitis B Surface Antigen Nonreactive (Nonreactive) Hepatitis B Core IgM Antibody Nonreactive (Nonreactive) Hepatitis C IgG Antibody Nonreactive (Nonreactive) HIV (1&2) Antibody Screen Nonreactive (Nonreactive) Test 01/06/19 03:10 Sodium Level 144 mmol/L (136-145) Potassium Level 3.3 mmol/L (3.5-5.1) Chloride Level 104 mmol/L (98-107) Carbon Dioxide Level 29 mmol/L (21-32) Anion Gap 11 (6-14) Blood Urea Nitrogen 3 mg/dL (7-20) Creatinine 0.7 mg/dL (0.6-1.0) Estimated GFR (Cockcroft-Gault) 91.3 BUN/Creatinine Ratio 4 (6-20) Glucose Level 105 mg/dL (70-99) Calcium Level 8.4 mg/dL (8.5-10.1) Total Bilirubin 0.7 mg/dL (0.2-1.0) Aspartate Amino Transf (AST/SGOT) 169 U/L (15-37) Alanine Aminotransferase (ALT/SGPT) 401 U/L (14-59) Alkaline Phosphatase 109 U/L (46-116) Total Protein 6.9 g/dL (6.4-8.2) Albumin 3.5 g/dL (3.4-5.0) Albumin/Globulin Ratio 1.0 (1.0-1.7) Laboratory Tests Test 01/05/19 11:30 01/06/19 03:10 Hepatitis A IgM Antibody Nonreactive (Nonreactive) Hepatitis B Surface Antigen Nonreactive (Nonreactive) Hepatitis B Core IgM Antibody Nonreactive (Nonreactive) Hepatitis C IgG Antibody Nonreactive (Nonreactive) HIV (1&2) Antibody Screen Nonreactive (Nonreactive) Sodium Level 144 mmol/L (136-145) Potassium Level 3.3 mmol/L (3.5-5.1) Chloride Level 104 mmol/L (98-107) Carbon Dioxide Level 29 mmol/L (21-32) Anion Gap 11 (6-14) Blood Urea Nitrogen 3 mg/dL (7-20) Creatinine 0.7 mg/dL (0.6-1.0) Estimated GFR (Cockcroft-Gault) 91.3 BUN/Creatinine Ratio 4 (6-20) Glucose Level 105 mg/dL (70-99) Calcium Level 8.4 mg/dL (8.5-10.1) Total Bilirubin 0.7 mg/dL (0.2-1.0) Aspartate Amino Transf (AST/SGOT) 169 U/L (15-37) Alanine Aminotransferase (ALT/SGPT) 401 U/L (14-59) Alkaline Phosphatase 109 U/L (46-116) Total Protein 6.9 g/dL (6.4-8.2) Albumin 3.5 g/dL (3.4-5.0) Albumin/Globulin Ratio 1.0 (1.0-1.7) Medications Current Medications Fentanyl Citrate (Fentanyl 2ml Vial) 50 mcg 1X ONCE IV Last administered on at 01:20; Start 01/05/19 at 00:15; Stop 01/05/19 at 00:16; Status DC Sodium Chloride 1,000 ml @ 1,000 mls/hr 1X ONCE IV Last administered on at 01:20; Start 01/05/19 at 00:15; Stop 01/05/19 at 01:14; Status DC Ondansetron HCl (Zofran) 4 mg 1X ONCE IV Last administered on 01/05/19at 01:20 ; Start 01/05/19 at 00:15; Stop 01/05/19 at 00:16; Status DC Piperacillin Sod/ Tazobactam Sod (Zosyn Per Pharmacy) 1 each PRN DAILY PRN MC SEE COMMENTS; Start 01/05/19 at 03:15 Ondansetron HCl (Zofran) 4 mg PRN Q8HRS PRN IV NAUSEA/VOMITING 1ST CHOICE; Start 01/05/19 at 03:15; Stop 01/06/19 at 03:14; Status DC Morphine Sulfate (Morphine Sulfate) 2 mg PRN Q2HR PRN IV SEVERE PAIN; Start at 03:15; Stop 01/06/19 at 03:14; Status DC Sodium Chloride 1,000 ml @ 125 mls/hr Q8H IV Last administered on 01/05/19 21 :25; Start 01/05/19 at 03:30; Stop 01/06/19 at 03:29; Status DC Piperacillin Sod/ Tazobactam Sod 3.375 gm/Sodium Chloride 50 ml @ 100 mls/hr Q6HRS IV Last administered on 01/06/19 05:59; Start 01/05/19 at 04:00 Pantoprazole Sodium (PROTONIX VIAL for IV PUSH) 40 mg BIDAC IVP Last administered on 01/05/19 16:02; Start 01/05/19 at 16:30 Lactobacillus Rhamnosus (Culturelle) 1 cap BID PO Last administered on 21:21; Start 01/05/19 at 21:00 Vitals/I & O Vital Sign - Last 24 Hours 01/05/19 01/05/19 01/05/19 01/05/19 10:41 15:00 19:00 20:00 Temp 98.0 98.0 98.0 98.0 98.0 98.0 Pulse 59 60 63 Resp 16 18 18 B/P (MAP) 125/70 (88) 123/64 (83) 128/68 (88) Pulse Ox 96 96 97 O2 Delivery Room Air Room Air Room Air Room Air 01/05/19 01/06/19 22:59 03:00 Temp 98.6 98.1 98.6 98.1 Pulse 61 55 Resp 18 18 B/P (MAP) 131/75 (93) 147/81 (103) Pulse Ox 96 95 O2 Delivery Room Air Room Air Intake and Output 01/05/19 01/05/19 01/06/19 15:00 23:00 07:00 Intake Total 1800 ml 50 ml Balance 1800 ml 50 ml NIRAJ BISHOP MD Jan 06, 2019 08:12
[2019-01-06] MEDS ORDERED: POTASSIUM CHLORIDE 20 MEQ TABLET.ER. PO ONE (08:30)
[2019-01-06] MEDS ORDERED: BUPIVAC MPF-EPI 0.5%-1:200000 30 ML VIAL. ONE (10:40)
[2019-01-06] MEDS ORDERED: SURGICEL HEMOSTAT 4X8 EACH. ONE (10:40)
[2019-01-06] MEDS ORDERED: IOHEXOL 300 MG/ML 100ML VIAL. ONE (10:40)
[2019-01-06] MEDS ORDERED: GLUCAGON,HUMAN RECOMBINANT 1 MG/ML VIAL. ONE (10:40)
--- NOTE | 2019-01-06 10:48 | PDOC ---
Objective: Vital Signs: Vital Signs Date Time Temp Pulse Resp B/P (MAP) Pulse Ox O2 Delivery O2 Flow Rate FiO2 01/06/19 10:20 98.1 66 15 144/81 99 Room Air 98.1 Labs: Laboratory Tests Test 01/05/19 11:30 01/06/19 03:10 Hepatitis A IgM Antibody Nonreactive Hepatitis B Surface Antigen Nonreactive Hepatitis B Core IgM Antibody Nonreactive Hepatitis C IgG Antibody Nonreactive HIV (1&2) Antibody Screen Nonreactive Sodium Level 144 mmol/L Potassium Level 3.3 mmol/L Chloride Level 104 mmol/L Carbon Dioxide Level 29 mmol/L Anion Gap 11 Blood Urea Nitrogen 3 mg/dL Creatinine 0.7 mg/dL Estimated GFR (Cockcroft-Gault) 91.3 BUN/Creatinine Ratio 4 Glucose Level 105 mg/dL Calcium Level 8.4 mg/dL Magnesium Level 2.1 mg/dL Total Bilirubin 0.7 mg/dL Aspartate Amino Transf (AST/SGOT) 169 U/L Alanine Aminotransferase (ALT/SGPT) 401 U/L Alkaline Phosphatase 109 U/L Total Protein 6.9 g/dL Albumin 3.5 g/dL Albumin/Globulin Ratio 1.0 PE: out of room A/P: Upper abd pain, nausea Abnormal LFTs - better, Hep serologies neg Abnormal GB imaging Chronic thrombocytopenia Hypokalemia - per primary -- Out for surgery, will follow. SOWMYA TURNER Jan 06, 2019 10:48
[2019-01-06] MEDS ORDERED: ROCURONIUM 50 MG/5 ML VIAL. ONE (11:25)
[2019-01-06] MEDS ORDERED: fentaNYL PF VIAL 100 MCG/2 ML VIAL ONE (11:25)
[2019-01-06] MEDS ORDERED: ONDANSETRON PF 4 MG/2 ML VIAL. ONE (11:27)
[2019-01-06] MEDS ORDERED: LIDOCAINE 2% PF 5 ML VIAL. ONE (11:27)
[2019-01-06] MEDS ORDERED: SEVOFLURANE 61 TO 120 MINUTES. IH ONE (11:27)
[2019-01-06] MEDS ORDERED: PROPOFOL 20 ML IV ONE (11:27)
[2019-01-06] MEDS ORDERED: DEXAMETHASONE SOD PHOS 20 MG/5 ML VIAL. ONE (11:27)
--- NOTE | 2019-01-06 11:59 | NUR ---
SW following. Discussed with RN, pt is having a procedure today. RN anticipates possible discharge tomorrow. SW will continue to follow.
[2019-01-06] MEDS ORDERED: ceFAZolin SODIUM 1 GM VIAL ONE ×2 (12:11)
[2019-01-06] MEDS ORDERED: NEOSTIGMINE METHYLSULFATE 5 MG/5 ML SYRINGE. ONE (12:30)
--- NOTE | 2019-01-06 12:43 | RAD ---
C-arm fluoroscopy with fluoroscopic spot views Clinical indications: Laparoscopic cholecystectomy. Intraoperative cholangiogram. Total fluoroscopic time: 23 seconds. Total fluoroscopic spot images: 4. IMPRESSION: There is opacification of a mildly dilated extrahepatic biliary tree with free flow of contrast material from the common bile duct into the duodenum. There is mild retrograde opacification of the distal main pancreatic duct. No stricture or stone of the common bile duct is evident. Electronically signed by: Mio Wolf MD (01/06/2019 12:41 PM) [facility]
[2019-01-06] MEDS ORDERED: KETOROLAC 30 MG/ML INJ FOR OR. INJ ONE (12:49)
--- NOTE | 2019-01-06 12:59 | PDOC4 ---
Operative Note Operative Note Operative Note: Preoperative Diagnosis: Cholecystitis Postoperative Diagnosis: Same Procedure: Laparoscopic cholecystectomy with intraoperative cholangiogram Surgeons: López Spinning [employer] Operator: Eladia ALFARO Anesthesia: Gen. Estimated Blood Loss: 10 mL Specimen: Gallbladder to pathology Drains: None Complications: None Indications: The patient is a 43-year-old female who has been experiencing upper abdominal and right upper quadrant pain. During her evaluation she had ultrasound findings concerning for cholecystitis and elevated liver tests. Based on her presentation surgical treatment was offered by means of a laparoscopic cholecystectomy. The risks of surgery were discussed which include bleeding, infection, bile duct injury, bile leak, pain, the potential for additional surgeries or procedures. The patient understands and would like to proceed. Description: The patient was taken to the operating room and laid supine on the operating table. General anesthesia was performed. The abdomen was prepped with ChloraPrep and draped in a standard surgical fashion. A small infraumbilical incision was made with a scalpel. The Veress needle was then inserted and a pneumoperitoneum was then created. A 5 mm trocar was then inserted and the laparoscope was introduced. In the upper midabdomen a 5 mm trocar was inserted and in the right upper quadrant two 2.3 mm mini lap graspers were inserted. The gallbladder was retracted cephalad. The cystic duct was dissected free from surrounding tissues. One clip was placed on the duct near the gallbladder junction. An opening was made in the duct and a cholangiocatheter placed within and secured with a clip. Using contrast dye and fluoroscopy an intraoperative cholangiogram was performed that appeared unremarkable. The clip and catheter were then withdrawn. Three clips were placed on the cystic duct and it was divided. The cystic artery was then identified, dissected free, doubly clipped and divided as well. The gallbladder was then mobilized away from the liver with cautery. The umbilical 5 millimeter trocar was exchanged for an 11 millimeter trocar. The gallbladder was then placed in an endoscopic bag and extracted at the umbilical trocar site. The fascia there was closed with an 0 Vicryl suture. All blood and irrigation fluid was suctioned and hemostasis was good. The remaining ports were removed and the pneumoperitoneum was relieved. The skin incisions were injected with half percent Marcaine with epinephrine, and all were closed using 4-0 Monocryl suture. Steri-Strips and dressings were then applied. The patient tolerated the procedure well and was sent to the recovery room in stable condition. At the end of the case all counts were correct. YANCY MCKEON MD Jan 06, 2019 12:59
[2019-01-06] MEDS ORDERED: oxyCODONE/APAP 5/325 1 TAB TABLET PO PRN ×2 (13:00→13:15)
[2019-01-06] MEDS ORDERED: IV RINGERS,LACTATED 1000ML 1,000 ML IV SCH (13:01)
[2019-01-06] MEDS ORDERED: HYDROmorphone 2 MG/ML VIAL IV PRN (13:15)
[2019-01-06] MEDS ORDERED: PROCHLORPERAZINE 10 MG/2 ML VIAL. IV PRN (13:15)
[2019-01-06] MEDS ORDERED: ONDANSETRON PF 4 MG/2 ML VIAL. IV PRN (13:15)
[2019-01-06] MEDS ORDERED: LIDOCAINE 1% PF 2 ML VIAL. ID PRN (13:15)
[2019-01-06] MEDS ORDERED: MORPHINE SULFATE 2 MG/ML VIAL. IV PRN (13:15)
[2019-01-06] MEDS ORDERED: fentaNYL PF VIAL 100 MCG/2 ML VIAL IV PRN (13:15)
[2019-01-06] MEDS: fentaNYL PF VIAL 100 MCG/2 ML VIAL IV PRN ×2 (13:36→14:10)
[2019-01-07 03:00] VITALS: BP 121/67
[2019-01-07] MEDS: PIPERACILLIN/TAZOBACTAM 3.375 GM in IV NORMAL SALINE 50ML 50 ML IV SCH ×4 (06:05→11:40)
[2019-01-07 07:00] VITALS: BP 136/69
--- NOTE | 2019-01-07 07:50 | PDOC ---
PROGRESS NOTES Chief Complaint Chief Complaint A/P: Abdominal pain - this seems likely cholecystitis, could be an acute hepatitis, however. Consult general surgery and GI Transaminitis - will get Hepatitis viral series and check HIV. Check thyroid, ferritin. Likely this is secondary to cholecystitis Thrombocytopenia - noted historically, will screen for HIV, Hepatitis. Cont to monitor. Transfuse platelets if she is less than 20 and hold off on thromboprophylaxis if < 50 Obesity - counseled on weight loss FEN - NPO, LR 125cc/hr PPX - SCDs FULL CODE Inpatient for acute abdominal pain, likely acute leonel, will need a few night inpatient History of Present Illness History of Present Illness 43 yo female, mostly american-speaking only, with PMHx thrombocytopenia who presents with complaint of abdominal pain and nausea that began 01/03/19 in the evening. Patient reports her symptoms have gradually worsened. She reports that although she has felt nauseous she has not vomited. She tried treating her pain with tylenol with no symptomatic relief. She reports her last bowel movement was yesterday morning. She notes she has not passed gas since the bowel movement. She denies pain or burning w/ urination. Patient denies back pain, chest pain, shortness of breath. Found with large transaminitis, admitted for further care. US RUQ shows GB wall thickening. Pain improved after morphine dosing. 01/06: S/p lap leonel LFTs better today, urine returned with > 100K e. coli. She still has some bilateral upper quadrant pain. No SOB or chest pain. Ambulating well, passing flatus. PO pain meds. Vitals Vitals Vital Signs Date Time Temp Pulse Resp B/P (MAP) Pulse Ox O2 Delivery O2 Flow Rate FiO2 01/07/19 03:00 98.3 66 18 121/67 (85) 94 Room Air 2.0 98.3 Physical Exam General: Alert, Oriented X3, Cooperative, No acute distress Heart: Regular rate Abdomen: Normal bowel sounds, Soft, No hepatosplenomegaly, No masses, Other ( RUQ and epigastric tenderness) Extremities: No clubbing, No cyanosis, No edema, Normal pulses, No tenderness/ swelling Skin: No rashes, No breakdown, No significant lesion Comment Review of Relevant I have reviewed the following items janeth (where applicable) has been applied. Labs Laboratory Tests Test 01/05/19 11:30 01/06/19 03:10 Hepatitis A IgM Antibody Nonreactive (Nonreactive) Hepatitis B Surface Antigen Nonreactive (Nonreactive) Hepatitis B Core IgM Antibody Nonreactive (Nonreactive) Hepatitis C IgG Antibody Nonreactive (Nonreactive) HIV (1&2) Antibody Screen Nonreactive (Nonreactive) Sodium Level 144 mmol/L (136-145) Potassium Level 3.3 mmol/L (3.5-5.1) Chloride Level 104 mmol/L (98-107) Carbon Dioxide Level 29 mmol/L (21-32) Anion Gap 11 (6-14) Blood Urea Nitrogen 3 mg/dL (7-20) Creatinine 0.7 mg/dL (0.6-1.0) Estimated GFR (Cockcroft-Gault) 91.3 BUN/Creatinine Ratio 4 (6-20) Glucose Level 105 mg/dL (70-99) Calcium Level 8.4 mg/dL (8.5-10.1) Magnesium Level 2.1 mg/dL (1.8-2.4) Total Bilirubin 0.7 mg/dL (0.2-1.0) Aspartate Amino Transf (AST/SGOT) 169 U/L (15-37) Alanine Aminotransferase (ALT/SGPT) 401 U/L (14-59) Alkaline Phosphatase 109 U/L (46-116) Total Protein 6.9 g/dL (6.4-8.2) Albumin 3.5 g/dL (3.4-5.0) Albumin/Globulin Ratio 1.0 (1.0-1.7) Microbiology 01/05/19 Urine Culture - Preliminary, Resulted 01/05/19 Urine Culture Result 1 (ADRIAN) - Preliminary, Resulted Medications Current Medications Fentanyl Citrate (Fentanyl 2ml Vial) 50 mcg 1X ONCE IV Last administered on 01:20; Start 01/05/19 at 00:15; Stop 01/05/19 at 00:16; Status DC Sodium Chloride 1,000 ml @ 1,000 mls/hr 1X ONCE IV Last administered on 01:20; Start 01/05/19 at 00:15; Stop 01/05/19 at 01:14; Status DC Ondansetron HCl (Zofran) 4 mg 1X ONCE IV Last administered on 01/05/19at 01:20 ; Start 01/05/19 at 00:15; Stop 01/05/19 at 00:16; Status DC Piperacillin Sod/ Tazobactam Sod (Zosyn Per Pharmacy) 1 each PRN DAILY PRN MC SEE COMMENTS; Start 01/05/19 at 03:15 Ondansetron HCl (Zofran) 4 mg PRN Q8HRS PRN IV NAUSEA/VOMITING 1ST CHOICE; Start 01/05/19 at 03:15; Stop 01/06/19 at 03:14; Status DC Morphine Sulfate (Morphine Sulfate) 2 mg PRN Q2HR PRN IV SEVERE PAIN; Start at 03:15; Stop 01/06/19 at 03:14; Status DC Sodium Chloride 1,000 ml @ 125 mls/hr Q8H IV Last administered on 01/05/19at 21 :25; Start 01/05/19 at 03:30; Stop 01/06/19 at 03:29; Status DC Piperacillin Sod/ Tazobactam Sod 3.375 gm/Sodium Chloride 50 ml @ 100 mls/hr Q6HRS IV Last administered on 01/07/19at 06:05; Start 01/05/19 at 04:00 Pantoprazole Sodium (PROTONIX VIAL for IV PUSH) 40 mg BIDAC IVP Last administered on 01/06/19at 15:35; Start 01/05/19 at 16:30 Lactobacillus Rhamnosus (Culturelle) 1 cap BID PO Last administered on at 20:38; Start 01/05/19 at 21:00 Potassium Chloride (Klor-Con) 40 meq 1X ONCE PO Last administered on at 08:29; Start 01/06/19 at 08:30; Stop 01/06/19 at 08:31; Status DC Rocuronium [place] (Zemuron) 50 mg STK-MED ONCE .ROUTE ; Start 01/06/19 at 11:25 ; Stop 01/06/19 at 11:26; Status DC Fentanyl Citrate (Fentanyl 2ml Vial) 100 mcg STK-MED ONCE .ROUTE ; Start at 11:25; Stop 01/06/19 at 11:26; Status DC Sevoflurane (Ultane) 60 ml STK-MED ONCE IH ; Start 01/06/19 at 11:27; Stop 01/06 at 11:28; Status DC Propofol 20 ml @ As Directed STK-MED ONCE IV ; Start 01/06/19 at 11:27; Stop at 11:28; Status DC Lidocaine HCl (Lidocaine Pf 2% Vial) 5 ml STK-MED ONCE .ROUTE ; Start 01/06/19 at 11:27; Stop 01/06/19 at 11:28; Status DC Dexamethasone Sodium Phosphate (Decadron) 20 mg STK-MED ONCE .ROUTE ; Start at 11:27; Stop 01/06/19 at 11:28; Status DC Ondansetron HCl (Zofran) 4 mg STK-MED ONCE .ROUTE ; Start 01/06/19 at 11:27; Stop 01/06/19 at 11:28; Status DC Bupivacaine HCl/ Epinephrine Bitart (Sensorcain-Mpf Epi 0.5%-1:[id number]) 30 ml STK -MED ONCE .ROUTE ; Start 01/06/19 at 10:40; Stop 01/06/19 at 11:40; Status DC Glucagon (Glucagen) 1 mg STK-MED ONCE .ROUTE ; Start 01/06/19 at 10:40; Stop at 11:40; Status DC Iohexol (Omnipaque 300 Mg/ml) 100 ml STK-MED ONCE .ROUTE ; Start 01/06/19 at 10: 40; Stop 01/06/19 at 11:40; Status DC Cellulose (Surgicel Hemostat 4x8) 1 each STK-MED ONCE .ROUTE ; Start 01/06/19 at 10:40; Stop 01/06/19 at 11:40; Status DC Cefazolin Sodium (Ancef) 1 gm STK-MED ONCE .ROUTE ; Start 01/06/19 at 12:11; Stop 01/06/19 at 12:12; Status DC Cefazolin Sodium (Ancef) 1 gm STK-MED ONCE .ROUTE ; Start 01/06/19 at 12:11; Stop 01/06/19 at 12:12; Status DC Neostigmine Methylsulfate (Neostigmine Methylsulfate) 5 mg STK-MED ONCE .ROUTE ; Start 01/06/19 at 12:30; Stop 01/06/19 at 12:31; Status DC Ketorolac Tromethamine (Toradol For Or Only) 30 mg STK-MED ONCE INJ ; Start at 12:49; Stop 01/06/19 at 12:50; Status DC Oxycodone/ Acetaminophen (Percocet 5/325) 1 tab PRN Q4HRS PRN PO PAIN; Start at 13:00 Ondansetron HCl (Zofran) 4 mg PRN Q6HRS PRN IV NAUSEA/VOMITING; Start 01/06/19 at 13:15; Stop 01/06/19 at 14:57; Status DC Fentanyl Citrate (Fentanyl 2ml Vial) 25 mcg PRN Q5MIN PRN IV MILD PAIN; Start 01/06/19 at 13:15; Stop 01/06/19 at 14:57; Status DC Fentanyl Citrate (Fentanyl 2ml Vial) 50 mcg PRN Q5MIN PRN IV MODERATE TO SEVERE PAIN Last administered on 01/06/19at 14:10; Start 01/06/19 at 13:15; Stop 01/06/19 at 14:57; Status DC Morphine Sulfate (Morphine Sulfate) 1 mg PRN Q10MIN PRN IV SEVERE PAIN; Start 01/06/19 at 13:15; Stop 01/06/19 at 14:57; Status DC Ringer's Solution 1,000 ml @ 30 mls/hr Q24H IV Last administered on 01/06/19at 13:17; Start 01/06/19 at 13:01; Stop 01/06/19 at 14:57; Status DC Lidocaine HCl (Xylocaine-Mpf 1% 2ml Vial) 2 ml PRN 1X PRN ID PRIOR TO IV START ; Start 01/06/19 at 13:15; Stop 01/06/19 at 14:57; Status DC Hydromorphone HCl (Dilaudid) 0.5 mg PRN Q10MIN PRN IV SEV PAIN, Second choice; Start 01/06/19 at 13:15; Stop 01/06/19 at 14:57; Status DC Prochlorperazine Edisylate (Compazine) 5 mg PACU PRN PRN IV NAUSEA, MRX1 Last administered on 01/06/19at 13:35; Start 01/06/19 at 13:15; Stop 01/06/19 at 14:57 ; Status DC Oxycodone/ Acetaminophen (Percocet 5/325) 2 tab PRN Q4HRS PRN PO PAIN Last administered on 01/06/19at 15:35; Start 01/06/19 at 13:15 Vitals/I & O Vital Sign - Last 24 Hours 01/06/19 01/06/19 01/06/19 01/06/19 08:00 10:20 13:04 13:04 Temp 98.1 98.1 Pulse 66 59 Resp 15 20 B/P (MAP) 144/81 117/58 Pulse Ox 99 100 O2 Delivery Room Air Room Air Mask Simple Mask O2 Flow Rate 10 10 01/06/19 01/06/19 01/06/19 01/06/19 13:15 13:19 13:30 13:34 Pulse 64 63 62 59 Resp 20 20 B/P (MAP) 124/62 (82) 146/74 135/74 (94) 110/52 Pulse Ox 100 99 O2 Delivery Simple Mask Simple Mask O2 Flow Rate 10 10 01/06/19 01/06/19 01/06/19 01/06/19 13:36 13:45 13:49 14:00 Pulse 62 68 74 Resp 20 20 B/P (MAP) 126/64 (84) 121/56 136/80 (98) Pulse Ox 99 97 O2 Delivery Simple Mask Simple Mask O2 Flow Rate 10.0 10 01/06/19 01/06/19 01/06/19 01/06/19 14:04 14:10 14:10 14:15 Temp 96.9 96.9 Pulse 60 62 Resp 20 20 B/P (MAP) 122/63 138/70 (92) Pulse Ox 100 98 O2 Delivery Nasal Cannula Nasal Cannula Nasal Cannula O2 Flow Rate 2 2.0 2 01/06/19 01/06/19 01/06/19 01/06/19 14:26 14:30 14:34 15:00 Temp 98.3 98.3 Pulse 61 75 71 Resp 14 B/P (MAP) 124/62 (82) 146/76 (99) 127/61 (83) Pulse Ox 97 O2 Delivery Room Air Nasal Cannula O2 Flow Rate 2.0 01/06/19 01/06/19 01/06/19 01/06/19 15:35 16:00 17:00 17:11 Pulse 66 58 B/P (MAP) 111/60 (77) 110/62 (78) O2 Delivery Room Air Room Air 01/06/19 01/06/19 01/06/19 01/07/19 19:00 20:00 23:00 03:00 Temp 98.3 98.3 98.3 98.3 98.3 98.3 Pulse 67 75 66 Resp 18 18 18 B/P (MAP) 111/60 (77) 115/68 (84) 121/67 (85) Pulse Ox 96 98 94 O2 Delivery Nasal Cannula Room Air Room Air Room Air O2 Flow Rate 2.0 2.0 2.0 Intake and Output 01/06/19 01/06/19 01/07/19 14:59 22:59 06:59 Intake Total 1350 ml 120 ml 200 ml Output Total 10 ml Balance 1340 ml 120 ml 200 ml NIRAJ BISHOP MD Jan 07, 2019 07:50
[2019-01-07] MEDS: PANTOPRAZOLE IV PUSH 40 MG VIAL. IVP SCH (07:58)
[2019-01-07] MEDS: LACTOBACILLUS RHAMNOSUS GG 1 CAPSULE. PO SCH (07:58)
--- NOTE | 2019-01-07 10:02 | PDOC ---
Subjective: Subjective: Right-sided soreness. Tolerating PO, passing gas. Objective: Vital Signs: Vital Signs Date Time Temp Pulse Resp B/P (MAP) Pulse Ox O2 Delivery O2 Flow Rate FiO2 01/07/19 08:00 Room Air 01/07/19 07:00 98.2 62 14 136/69 (91) 98 2.0 98.2 Imaging: IOC 01/06 IMPRESSION: There is opacification of a mildly dilated extrahepatic biliary tree with free flow of contrast material from the common bile duct into the duodenum. There is mild retrograde opacification of the distal main pancreatic duct. No stricture or stone of the common bile duct is evident. PE: GEN: NAD LUNGS: CTAB HEART: RRR ABD: quiet, soft, mild right-sided discomfort NEURO/PSYCH: A & O 3 A/P: S/p cholecystectomy UTI Elevated LFTs (improved on labs 01/06), possible hepatis steatosis -- DC per primary/surgery. PO PPI. SOWMYA TURNER Jan 07, 2019 10:02
[2019-01-07] MEDS ORDERED: OXYC1TAB15 PO (10:41)
[2019-01-07] MEDS ORDERED: CEFU250T59 PO (10:41)
[2019-01-07 11:00] VITALS: BP 140/72
--- NOTE | 2019-01-07 11:21 | NUR ---
SW following. Discussed with RN, SW met with pt to discuss self pay status and give resources. SW spoke with pt via the [employer] phone ([employer] number [phone]). Pt had questions regarding the hospital bill, SW offered to have someone from registration come to speak with her and her at bedside. Pt denied any further SW needs. Pt will likely discharge home today. RN notified.
--- NOTE | 2019-01-07 11:54 | PDOC ---
SURGICAL PROGRESS NOTE Subjective tolerating diet pain managed ambulating Vital Signs Vital Signs Date Time Temp Pulse Resp B/P (MAP) Pulse Ox O2 Delivery O2 Flow Rate FiO2 01/07/19 11:00 98.6 55 16 140/72 (94) 98 Room Air 2.0 98.6 I&O Intake and Output 01/07/19 07:00 Intake Total 1670 ml Output Total 10 ml Balance 1660 ml Intake Oral 320 ml IV Total 1350 ml Estimated Blood Loss 10 ml # Voids 1 General: Alert, Oriented X3, Cooperative, No acute distress Abdomen: Soft, Other (ND, lap dressings dry, incisional TTP) Labs Laboratory Tests Test 01/06/19 03:10 Sodium Level 144 mmol/L (136-145) Potassium Level 3.3 mmol/L (3.5-5.1) Chloride Level 104 mmol/L (98-107) Carbon Dioxide Level 29 mmol/L (21-32) Anion Gap 11 (6-14) Blood Urea Nitrogen 3 mg/dL (7-20) Creatinine 0.7 mg/dL (0.6-1.0) Estimated GFR (Cockcroft-Gault) 91.3 BUN/Creatinine Ratio 4 (6-20) Glucose Level 105 mg/dL (70-99) Calcium Level 8.4 mg/dL (8.5-10.1) Magnesium Level 2.1 mg/dL (1.8-2.4) Total Bilirubin 0.7 mg/dL (0.2-1.0) Aspartate Amino Transf (AST/SGOT) 169 U/L (15-37) Alanine Aminotransferase (ALT/SGPT) 401 U/L (14-59) Alkaline Phosphatase 109 U/L (46-116) Total Protein 6.9 g/dL (6.4-8.2) Albumin 3.5 g/dL (3.4-5.0) Albumin/Globulin Ratio 1.0 (1.0-1.7) Problem List s/p lap leonel ok to dc home FU 2 weeks DONG KENNEDY APRN Jan 07, 2019 11:54
--- NOTE | 2019-01-07 12:48 | PDOC3 ---
Discharge Summary Visit Information Date of Admission: Jan 05, 2019 Date of Discharge: Jan 07, 2019 Admitting Diagnosis: Abdominal pain Final Diagnosis Acute cholecystitis Brief Hospital Course Allergies Allergies Coded Allergies Type Severity Reaction Last Updated Verified No Known Drug Allergies 01/06/19 No Vital Signs Vital Signs Date Time Temp Pulse Resp B/P (MAP) Pulse Ox O2 Delivery O2 Flow Rate FiO2 01/07/19 11:00 98.6 55 16 140/72 (94) 98 Room Air 2.0 98.6 Lab Results Laboratory Tests Test 01/06/19 03:10 Sodium Level 144 mmol/L (136-145) Potassium Level 3.3 mmol/L (3.5-5.1) Chloride Level 104 mmol/L (98-107) Carbon Dioxide Level 29 mmol/L (21-32) Anion Gap 11 (6-14) Blood Urea Nitrogen 3 mg/dL (7-20) Creatinine 0.7 mg/dL (0.6-1.0) Estimated GFR (Cockcroft-Gault) 91.3 BUN/Creatinine Ratio 4 (6-20) Glucose Level 105 mg/dL (70-99) Calcium Level 8.4 mg/dL (8.5-10.1) Magnesium Level 2.1 mg/dL (1.8-2.4) Total Bilirubin 0.7 mg/dL (0.2-1.0) Aspartate Amino Transf (AST/SGOT) 169 U/L (15-37) Alanine Aminotransferase (ALT/SGPT) 401 U/L (14-59) Alkaline Phosphatase 109 U/L (46-116) Total Protein 6.9 g/dL (6.4-8.2) Albumin 3.5 g/dL (3.4-5.0) Albumin/Globulin Ratio 1.0 (1.0-1.7) Brief Hospital Course Ms Allen is a 43 yo female, mostly sao tomean-speaking only, with PMHx thrombocytopenia who presents with complaint of abdominal pain and nausea that began 01/03/19 in the evening. Patient reports her symptoms have gradually worsened. She reports that although she has felt nauseous she has not vomited. She tried treating her pain with tylenol with no symptomatic relief. She reports her last bowel movement was yesterday morning. She notes she has not passed gas since the bowel movement. She denies pain or burning w/ urination. Patient denies back pain, chest pain, shortness of breath. Found with large transaminitis, admitted for further care. US RUQ shows GB wall thickening. Pain improved after morphine dosing. 01/06: S/p lap leonel that was uneventful with general surgery LFTs better post op, urine returned with > 100K e. coli. She still has some bilateral upper quadrant pain. No SOB or chest pain. Taking PO pain meds, ambulatory, taking PO well, passing flatus. Seen by GI and general surgery in consultation and ok for discharge home on pain medications with surgery f/u in 1 -2 weeks for site check. 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 Problems: Abdominal pain - this seems likely cholecystitis, ruled out hepatitis, s/p lap leonel with symptomatic relief. Consulted general surgery and GI Transaminitis - negative Hepatitis viral series and negative HIV. Checked thyroid, ferritin. this is secondary to cholecystitis Thrombocytopenia - noted historically, stable Obesity - counseled on weight loss Discharge Information Condition at Discharge: Improved Follow Up: Weeks (2) Disposition/Orders: D/C to Home Scheduled Cefuroxime Axetil (Cefuroxime) 250 Mg Tablet, 250 MG PO BID for UTI for 3 Days, #6 Prescribed by: NIRAJ BISHOP MD on 01/07/19 1041 Scheduled PRN Oxycodone/Apap 5-325 (Percocet 5-325 Mg Tablet ) 1 Each Tablet, 1 TAB PO PRN Q4HRS PRN for PAIN for 6 Days, #18 Prescribed by: NIRAJ BISHOP MD on 01/07/19 1041 NIRAJ BISHOP MD Jan 07, 2019 12:48
--- NOTE | 2019-01-07 13:26 | NUR ---
pt discharged at 1250, pt left via private vehicle with , pt stable and alert upon discharge. 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 Dawn in 2 weeks and new medications that have been prescribed.
[2019-01-07] MEDS ORDERED: PANTOPRAZOLE 40 MG TABLET.DR. PO SCH (16:30)
--- NOTE | 2019-01-08 15:06 | PATHOLOGY ---
[facility] Accession Number: [id number] . 01 Material submitted: . GALLBLADDER . 01 Clinical history: . Cholecystitis . 02 Diagnosis: Gallbladder, laparoscopic cholecystectomy: - Cholesterolosis. - Chronic cholecystitis with increased eosinophils. (JPM:[facility] 01/08/2019) QTP/01/08/2019 . 02 Comment: There are no calculi identified within the gallbladder lumen or specimen container. There is no evidence of malignancy. (JPM:[facility] 01/08/2019) . 02 Electronically signed: . Ronnell Grimes MD, Pathologist NPI- [id number] . 01 Gross description: . Received in formalin labeled "Alejandro, Sussy, gallbladder," is an intact gallbladder measuring 8.3 x 3.1 x 2.0 cm in greatest dimensions. The serosal surface is wrinkled to shaggy and yellow-green to dusky fair[place]-strong in appearance, displaying diffuse foci of dark red hemorrhage. Opening the specimen reveals a shaggy, dark green mucosa stippled with prominent yellow highlights and measuring 0.2 cm in thickness, with a gallbladder wall thickness of up to 0.3 cm. No polyps or nodules are identified grossly. Calculi are not present within the specimen or specimen container. Forensic Social Worker sections of the infundibulum, body and fundus are submitted in cassette A1. (DAC; 01/07/2019) XDC/XDC . 02 Pathologist provided ICD-10: K81.1, K82.4 . 02 CPT . 649378 Specimen Comment: A courtesy copy of this report has been sent to Specimen Comment: [phone], , . Specimen Comment: Report sent to ,DR KING / DR GALAVIZ Specimen Comment: A duplicate report has been generated due to demographic updates. Performed at: 01 [facility] [address], [place] [id number] MD Augusto Millan MD Phone: [phone] Performed at: [address] [facility] [address], [place] [id number] MD Ronnell Grimes MD Phone: [phone]
== END 2019-01-07 12:50 | disposition home or self-care (01) | DRG 418 ==
LOC: ER 21:48 → 5 SOUTH 01-05 03:15
PROVIDERS: ADMIT Internal Medicine; ATTEND Internal Medicine
PROC: BF131ZZ Fluoroscopy of Gallbladder and Bile Ducts using Low Osmolar Contrast (ICD-10-PCS; 2019-01-06)
PROC: 0FT44ZZ Resection of Gallbladder, Percutaneous Endoscopic Approach (ICD-10-PCS; principal; 2019-01-06 11:00)
DX: K81.0 Acute cholecystitis (principal); N39.0 Urinary tract infection, site not specified; D69.6 Thrombocytopenia, unspecified; E66.9 Obesity, unspecified; E87.6 Hypokalemia; Z68.31 Body mass index [BMI] 31.0-31.9, adult
CPT/HCPCS: 36415; 74300; 76705; 80053; 81001; 81025; 83690; 83735; 84484; 85025; 86703; 86705; 86709; 86803; 87086; 87186; 87340; 88304; 93005; 96361; 96374; 96375; C9113; J0690; J0780; J1100; J1610; J1885; J2001; J2405; J2543; J2704; J2710; J3010; J3490; J7030; J7120; Q9967; 99285-25